=== PATIENT | female | born 1955 | race Caucasian/White ===

== ENCOUNTER 2023-07-29 08:36 | Day surgery (SDC) | payer MEDICARE, OTHER ==
[2023-07-29] MEDS ORDERED: ALPRAZolam 0.25 MG TAB PO STA (09:07)
[2023-07-29 09:14] VITALS: RESP 16; TEMP 97.9
[2023-07-29 10:52] VITALS: BP 134/78; PULSE 99
--- NOTE | 2023-07-29 12:01 | US ---
ULTRASOUND GUIDED CORE BIOPSY OF OMENTAL MASS EXTENDING INTO THE SUBCUTANEOUS TISSUES CLINICAL HISTORY: Omental mass extending into the subcutaneous tissues FINDINGS: The procedure was explained to the patient. The risks, complications, benefits and alternatives were discussed and any questions were answered. Informed consent was obtained. Patient was placed supin e on the ultrasound table and prepped and draped in the usual sterile fashion. Utilizing a 18-gauge core biopsy needle two passes were made into the requested mass. Patient was stable throughout the procedure. Pathology is pending. All elements of maximal barrier technique were utilized. IMPRESSION: 1. Successful ultrasound guided core biopsy of omental mass.
== END 2023-07-29 10:10 | disposition home or self-care (01) ==
LOC: RADPROMAIN 08:36
PROVIDERS: ATTEND Family Medicine
DX: C78.6 Secondary malignant neoplasm of retroperitoneum and peritoneum (principal); C80.1 Malignant (primary) neoplasm, unspecified
CPT/HCPCS: 20206; 76942; 88305; 88341; 88342